=== PATIENT | female | born 1980 | race Caucasian/White ===

== ENCOUNTER → 2016-08-07 | Outpatient (CLI) | payer OTHER ==
--- NOTE | 2016-08-13 09:04 | CT ---
CT Lower Extremity Without Contrast, Right Tibia and Fibula History: History of displaced fracture of the right tibia. Open reduction internal fixation with heal ing difficulties. Two surgeries for repair. Comparisons: None. Technique: 0.625 mm helical images were obtained of the right tibia and fibula. Technique was optimiz ed to help diminish metal beam hardening artifact. Multiplanar reformation was performed. Findings: There is a comminuted fracture of the distal diaphysis of the tibia and distal metaphysis w ith intraarticular extension. Postsurgical changes are seen of open reduction internal fixation with a lateral fixation sideplate which at the inferior margin has a curve to the anterior cortex. Multipl e fixation screws are in place. Superior aspect of this lateral sideplate is laterally displaced sandi g the lateral cortex 4 mm with fracture of the most superior screw. The other screws are intact. This lateral sideplate bridges the dominant residual oblique fracture in the distal diaphysis of the tibi a. However this dominant fracture of the distal diaphysis has no bridging bone and excessive callus f ormation particularly anterior and medial and posterior aspect. A second anterior sideplate is seen i n the distal anterior medial metaphysis of the tibia which does not bridge this dominant residual fra cture plane. Partially persistent fracture planes are seen in the distal tibial metaphysis with intra articular extension particularly at the medial aspect of the tibial plafond. There are screw holes mo re proximally in the tibial diaphysis and in the calcaneus which could be from prior external fixatio n with hardware removed. Additionally there has been open reduction internal fixation of a fibular fr acture with a lateral sideplate and fixation screws in near anatomic alignment. There is near complet e osseous bridging along the fracture lines and no evidence for hardware complication. Mild degenerat muna change is seen at the tibiotalar joint with joint narrowing medially and subarticular sclerosis. There is punctate demineralization in the ankle and knee suggesting disuse osteoporosis. Impression: 1. Postsurgical changes of open reduction internal fixation of a comminuted tibial fracture in the di stal diaphysis and metaphysis with intraarticular extension. Of note is the lateral fixation plate sutherland periorly is mildly displaced laterally and the most superior screw is fractured. This plate does brid ge the dominant residual fracture line laterally at the distal diaphysis but the other fixation plate does not bridge this fracture line and there is no osseous bridging of this fracture with excessive callus along the anterior medial and posterior aspect with nonunion. 2. Incompletely healed fracture of the distal tibial metaphysis with intraarticular extension to the tibial plafond and mild degenerative change of the tibiotalar joint. 3. Healed fibular fracture with fixation. 4. Disuse osteoporosis.
== END ==
LOC: CIMAGING 13:33
PROVIDERS: ATTEND Orthopaedic Surgery Foot and Ankle Surgery
DX: S82.871D Displaced pilon fracture of right tibia, subsequent encounter for closed fracture with routine healing (principal)

== ENCOUNTER 2016-08-19 12:23 | Inpatient (IN) | payer OTHER ==
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
[2016-08-19] MEDS ORDERED: BUPIVACAINE 0.5% 30 ML SDV ONE ×2 (12:54→13:39)
[2016-08-19] MEDS ORDERED: LIDOCAINE 1% 5 ML SDV ONE ×2 (12:55→13:27)
[2016-08-19] MEDS ORDERED: LR 1,000 ML IV ONE (13:18)
[2016-08-19] MEDS ORDERED: ceFAZolin 2 GM/DEXTROSE 100 ML IV ONE (13:30)
[2016-08-19] MEDS ORDERED: PROPOFOL 200 MG/20 ML VIAL ONE ×2 (13:36)
[2016-08-19] MEDS ORDERED: fentaNYL 100 MCG/2 ML INJ ONE ×2 (13:36→21:54)
[2016-08-19] MEDS ORDERED: MIDAZOLAM 2 MG/2 ML VIAL ONE (13:39)
[2016-08-19] MEDS ORDERED: LIDOCAINE 2% 100 MG/5 ML SYR IVP ONE (13:40)
[2016-08-19] MEDS ORDERED: ROCURONIUM 50 MG/5 ML VIAL ONE (13:41)
[2016-08-19] MEDS ORDERED: ROPIVACAINE HCL 150 MG/30 ML INJ ONE ×2 (13:42)
[2016-08-19] MEDS ORDERED: clonIDINE 1 MG/10 ML VIAL EP ONE (13:42)
[2016-08-19] MEDS ORDERED: DEXAMETHASONE 4 MG/ML VIAL ONE ×2 (16:10)
[2016-08-19] MEDS ORDERED: ONDANSETRON 4 MG/2 ML VIAL ONE ×2 (16:11→21:45)
[2016-08-19] MEDS ORDERED: PHENYLEPHRINE 10 MG/ML SDV ONE (17:11)
[2016-08-19] MEDS ORDERED: ceFAZolin 1 GM VIAL ONE (18:33)
[2016-08-19] MEDS ORDERED: PROMETHAZINE HCL 25 MG/ML INJ ONE (21:55)
--- NOTE | 2016-08-19 21:57 | POSTOPPROG ---
Post Op Note Date of Operation: 08/19/16 Surgeon: Trey Maya Anesthesia: GET(General Endotracheal) Pre-op Diagnosis: Non union R tibia, retained hardware Post-op Diagnosis: same Procedure: Revision R Tib fx non union with IM nail, HWR Inf/Abcess present in the surg proc area at time of surgery?: No EBL: 100-500
[2016-08-19] MEDS ORDERED: NALOXONE HCL 0.4 MG/ML INJ IVP PRN (21:58)
[2016-08-19] MEDS ORDERED: POLYETHYLENE GLYCOL 3350 17 GM PKT PO PRN (21:58)
[2016-08-19] MEDS ORDERED: MAGNESIUM HYDROXIDE 30 ML UDCUP PO PRN (21:58)
[2016-08-19] MEDS ORDERED: METOCLOPRAMIDE 10 MG/2 ML VIAL IVP PRN (21:58)
[2016-08-19] MEDS ORDERED: BISACODYL 10 MG SUPP PR PRN (21:58)
[2016-08-19] MEDS ORDERED: LACTULOSE 20 GM/30 ML UDCUP PO PRN (21:58)
[2016-08-19] MEDS ORDERED: morphINE PCA 30 MG/30 ML PCA IV PRN (21:58)
[2016-08-19] MEDS ORDERED: D5W 1/2 NS W/ 20 KCl/L 1,000 ML IV SCH (22:00)
[2016-08-19] MEDS ORDERED: ALBUTEROL HFA ANES ONLY 200 PUFFS/8.5 GM MDI IH PRN (22:04)
--- NOTE | 2016-08-19 22:32 | DX ---
Fluoroscopy, With Right Tibia and Fibula Images, at 1549 hours History: Right tibia and fibula fractures. Fluoroscopy time: 328 seconds utilized intraoperatively by Dr. Maya. Dose: 22.24 mGy. Technique: Nine right tibia and fibula intraoperative images have just been presented for interpreta tion. Findings: Intramedullary alexandru placement through right tibia fracture. Impression: 328 seconds of fluoroscopy.
[2016-08-19] MEDS ORDERED: ALBUTEROL 60 PUFFS/8 GM MDI IH PRN (23:43)
[2016-08-20] MEDS: oxyCODONE IR 5 MG TAB PO PRN ×7 (00:10→21:29)
[2016-08-20] MEDS: LEVOTHYROXINE 25 MCG TAB PO SCH (05:16)
[2016-08-20] MEDS: ONDANSETRON 4 MG/2 ML VIAL IVP PRN (05:16)
--- NOTE | 2016-08-20 06:29 | SOAPPROG ---
SOAP Progress Note Assessment/Plan: Assessment: S/P IM Nail R tibial non union Pain tolerable - block working Violetta po +U/O Dressing intact, no D/C Toes with good cap refill Lower ext. "soft" Plan: OOB/PT Will assess tomorrow for poss D/C 08/20/16 06:25 Objective: Vital Signs Temp Pulse Resp BP Pulse Ox 36.9 C 72 15 91/59 L 100 08/20/16 04:00 08/20/16 04:00 08/20/16 04:00 08/20/16 04:00 08/20/16 04:00 Microbiology 08/19/16 15:52 Gram Stain - Final Leg - Swab 08/19/16 15:52 Gram Stain - Final Leg - Swab 08/19/16 08/20/16 08/21/16 05:59 05:59 05:59 Intake Total 3100 Output Total 600 Balance 2500 ICD10 Worksheet Patient Problems: Problems Problem Status Diagnosed Right tibial fracture Acute - ICD10 Problem Qualifiers (1) Right tibial fracture
[2016-08-20] MEDS: CHOLECALCIFEROL VIT D3 2,000 UNITS TAB/CAP PO SCH (08:05)
[2016-08-20] MEDS: SENNOSIDES/DOCUSATE SODIUM TAB PO SCH ×2 (08:05→20:16)
[2016-08-20] MEDS: ENOXAPARIN 40 MG/0.4 ML SYR SC SCH (08:05)
[2016-08-20] MEDS: Tretinoin [Retin-A] 1 APP TP SCH (08:16)
[2016-08-20] MEDS: FLUTICASONE/SALMETER 100/50MCG DISKUS IH SCH ×2 (08:22→21:28)
[2016-08-20] MEDS ORDERED: CHOLECALCIFEROL VIT D3 1,000 UNITS TAB PO SCH (09:00)
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
[2016-08-20] MEDS ORDERED: GABAPENTIN 100 MG CAP PO SCH (20:00)
[2016-08-20] MEDS ORDERED: GABAPENTIN 300 MG CAP PO SCH (21:00)
[2016-08-21] MEDS: oxyCODONE IR 5 MG TAB PO PRN ×7 (00:36→16:48)
[2016-08-21] MEDS: LEVOTHYROXINE 25 MCG TAB PO SCH (05:58)
--- NOTE | 2016-08-21 06:05 | SOAPPROG ---
SOAP Progress Note Assessment/Plan: Assessment: S/P IM Nail R tibial non union Pain tolerable - block working Elias po +U/O Dressing intact, no D/C Toes with good cap refill Lower ext. "soft" Plan: OOB/PT Will assess tomorrow for poss D/C 08/20/16 06:25 08/21/16 06:03 Nerve block worn off. Pain controlled on po meds elias diet + U/O No SOB,CP Dressing intact No D/C No increased pain with passive stretch of toes Toes with = sensation to pre-op D/C home Objective: Vital Signs Temp Pulse Resp BP Pulse Ox 36.8 C 91 12 121/64 H 100 08/21/16 03:03 08/21/16 03:03 08/21/16 03:03 08/21/16 03:03 08/21/16 03:03 Microbiology 08/19/16 15:52 Gram Stain - Final Leg - Swab 08/19/16 15:52 Gram Stain - Final Leg - Swab 08/20/16 08/21/16 08/22/16 05:59 05:59 05:59 Intake Total 3100 600 Output Total 600 775 Balance 2500 -175 ICD10 Worksheet Patient Problems: Problems Problem Status Diagnosed Right tibial fracture Acute - ICD10 Problem Qualifiers (1) Right tibial fracture
--- NOTE | 2016-08-21 07:11 | POSTANESTH ---
Post Anesthetic Evaluation Cardiovascular Status: Normal, Stable, Similar to Pre-Op Cond Respiratory Status: Normal, Stable, Similar to Pre-op Cond. Level of Consciousness/Mental Status: Can Participate in Eval, Alert and Oriented Pain Control: Adequate, Prn Tx Ordered Nausea/Vomiting Control: Adequate, Prn Tx Ordered Complications Possibly Related to Anesthesia: None Noted Notes: POD#2. Pain control is good. Pt has successfully transferred to oral medications. D/W pt and decided against placement of nerve block catheter at this time.
[2016-08-21] MEDS: SENNOSIDES/DOCUSATE SODIUM TAB PO SCH (08:09)
[2016-08-21] MEDS: CHOLECALCIFEROL VIT D3 2,000 UNITS TAB/CAP PO SCH (08:09)
[2016-08-21] MEDS: ENOXAPARIN 40 MG/0.4 ML SYR SC SCH (08:09)
[2016-08-21] MEDS: FLUTICASONE/SALMETER 100/50MCG DISKUS IH SCH (09:00)
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
[2016-08-21] MEDS: Tretinoin [Retin-A] 1 APP TP SCH (10:51)
[2016-08-21 11:20] VITALS: BP 112/58; PULSE 91; RESP 15; TEMP 98.3
[2016-08-21] MEDS: ONDANSETRON 4 MG/2 ML VIAL IVP PRN (13:40)
[2016-08-21 14:03] VITALS: O2SAT 86
== END 2016-08-21 16:54 | disposition home or self-care (01) | DRG 478 ==
LOC: OBSVTOIN 12:23 → F3N 12:23 → EDSTATUS 13:45 → PREINTOOBSV 16:57 → F3N 23:15
PROVIDERS: ADMIT Orthopaedic Surgery Foot and Ankle Surgery; ATTEND Orthopaedic Surgery Foot and Ankle Surgery
PROC: 0QQG0ZZ Repair Right Tibia, Open Approach (ICD-10-PCS; principal; 2016-08-19 14:30)
PROC: 0QPJ04Z Removal of Internal Fixation Device from Right Fibula, Open Approach (ICD-10-PCS; principal; 2016-08-19 14:30)
PROC: 0QSG3BZ Reposition Right Tibia with Monoplanar External Fixation Device, Percutaneous Approach (ICD-10-PCS; principal; 2016-08-19 14:30)
PROC: 0QBG0ZX Excision of Right Tibia, Open Approach, Diagnostic (ICD-10-PCS; principal; 2016-08-19 14:30)
PROC: 0QUG0JZ Supplement Right Tibia with Synthetic Substitute, Open Approach (ICD-10-PCS; principal; 2016-08-19 14:30)
PROC: 0QSG06Z Reposition Right Tibia with Intramedullary Internal Fixation Device, Open Approach (ICD-10-PCS; principal; 2016-08-19 14:30)
PROC: 0QPG04Z Removal of Internal Fixation Device from Right Tibia, Open Approach (ICD-10-PCS; principal; 2016-08-19 14:30)
DX: T84.116A Breakdown (mechanical) of internal fixation device of bone of right lower leg, initial encounter (principal); S82.301M Unspecified fracture of lower end of right tibia, subsequent encounter for open fracture type I or II with nonunion; M24.671 Ankylosis, right ankle; E03.9 Hypothyroidism, unspecified; J45.909 Unspecified asthma, uncomplicated
CPT/HCPCS: 97161-GP; C1713; C1762; C1769; J0690; J0735; J1100; J1650; J2001; J2250; J2370; J2405; J2550; J2704; J2795; J3010

== ENCOUNTER → 2016-12-31 | Outpatient (CLI) | payer OTHER | LOC: CIMAGING 13:27 | PROVIDERS: ATTEND Orthopaedic Surgery Foot and Ankle Surgery | DX: S82.301K Unspecified fracture of lower end of right tibia, subsequent encounter for closed fracture with nonunion (principal); S89.30 Unspecified physeal fracture of lower end of fibula | CPT/HCPCS: 73700-PO ==